=== PATIENT | male | born 2000 | race Caucasian/White ===

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

== ENCOUNTER 2022-08-04 17:18 | Emergency (ER) | payer SELFPAY ==
[~2022-08-04] VITALS: Ht 172 cm; Wt 77.0 kg
[~2022-08-04 17:18] MED LIST changes: -SULF1TAB35 PO; +SULF1TAB38 PO
[2022-08-04] MEDS ORDERED: TETRACAINE 0.5% OPHTH SOLN 4 ML BTL (SINGLE DOSE ONLY) OU ONE (17:30)
[2022-08-04] MEDS ORDERED: POLY/TRIMETH (POLYTRIM) OPHTH 10 ML BTL OU ONE ×2 (17:30)
[2022-08-04] MEDS ORDERED: FLUORESCEIN (FLUOR-I-STRIPS) 1 MG STRP OU ONE (17:30)
[2022-08-04] MEDS ORDERED: RX-POLY/TRIMETH (POLYTRIM) OP 10 ML BTL ONE (17:33)
--- NOTE | 2022-08-04 17:56 | ED EENT ---
History of Present Illness General Chief Complaint: Eye Problems Stated Complaint: FOREIGN BODY IN LEFT EYE Nursing Triage Note: PT AMB TO [facility] PT CO OF POSSIBLE PIECE OF METAL IN L EYE. PT STATES WAS GRINDING YESTERDAY. PT STATES WAS WEARING SAFETY GLASSES. L EYE REDDEND AND IRRITATED Source: patient Exam Limitations: no limitations History of Present Illness Date Seen by Provider: Aug 04, 2022 Time Seen by Provider: 17:26 Initial Comments 20-year-old male with no pertinent past medical history coming in after feeling like he has metal in his left eye. He is a sheetmetal worker, had safety glasses on, and felt to be the metal go into his left eye grinding yesterday. It was red a nd irritated, not having significant pain now, but wanted to get checked out. Tetanus is up-to-date. Allergies and Home Medications Allergies Coded Allergies: No Known Drug Allergies (Unverified , 07/12/09) Patient Home Medication List Home Medication List Reviewed: Yes Hydrocodone/Acetaminophen (Hydrocodone-Acetamin 5-325 mg) 5 Mg-325 Mg Tablet, 1 TAB PO Q6H PRN for PAIN-MODERATE (5-7) Prescribed by: RODRICK SEALS on 08/04/221809 Ibuprofen (Ibuprofen) 600 Mg Tablet, 600 MG PO Q6H PRN for PAIN-MILD Prescribed by: RODRICK SEALS on 08/04/221802 Sulfamethoxazole/Trimethoprim (Bactrim Ds Tablet) 1 Each Tablet, 1 EACH PO BID Prescribed by: JAE KIMBROUGH on 11/07/14 175 Tobramycin/Dexamethasone (Tobradex Eye Drops) 0.3 %-0.1 % Drops.susp, 2 DROPS OP Q4H Prescribed by: RODRICK SEALS on 08/04/221802 Discontinued Medications Tropicamide (Tropicamide) 1 % Drops, 1 DROP OP Q4H Prescribed by: RODRICK SEALS on 08/04/221802 Review of Systems Review of Systems Constitutional: No fever Eyes: See HPI Ears: No Symptoms Reported Nose: no symptoms reported Mouth: no symptoms reported Past Hefpogu-Qwqtii-Knmufm Hx Patient Social History Tobacco Use?: No Substance use?: No Alcohol Use?: No Pt feels they are or have been: No Immunizations Up To Date Tetanus Booster (TDap): Less than 5yrs PED Vaccines UTD: Yes First/Initial COVID19 Vaccinat: YES Second COVID19 Vaccination Layo: YES Family Medical History No Pertinent Family Hx Physical Exam Vital Signs Vital Signs - First Documented 08/04/22 17:25 Temp 36.6 Pulse 110 Resp 16 B/P (MAP) 125/95 (105) Pulse Ox 99 Height, Weight, BMI Height: 5'6.00" Weight: 169lbs. oz. 76.877391ki; 26.00 BMI Method:Stated General Appearance: WD/WN, no apparent distress Eyes: right eye normal inspection; left eye other (Metal flake in the right I along the iris, not in the visual field, normal visual acuity bilaterally, Meli negative, no large corneal abrasion); bilateral eye PERRL, bilateral eye EOMI Progress/Results/Core Measures Results/Orders My Orders Orders - RODRICK SEALS MD Tetracaine 0.5% Ophth Genoveva Sdv (Tetracai (08/04/22 17:30) Fluorescein Strips (Vsqhg-C-Hnxvkg) (08/04/22 17:30) Trimethoprim/Polymyx Ophth Genoveva (Polytrim (08/04/22 17:30) Rx-Poly/Trimeth Ophth (Rx-Polytrim Ophth (08/04/22 17:33) Tropicamide 1% Ophth Soln (Mydriacyl 1% (08/04/22 18:00) Tropicamide 1% Ophth Soln (Mydriacyl 1% (08/04/22 18:05) Medications Given in ED Current Medications Medications Dose Ordered Sig/Juan Carlos Route Start Time Stop Time Status Last Admin Dose Admin Fluorescein Sodium 1 mg ONCE ONCE OU 08/04/22 17:30 08/04/22 17:31 DC 08/04/22 17:33 1 MG Tetracaine HCl 4 ml ONCE ONCE OU 08/04/22 17:30 08/04/22 17:31 DC 08/04/22 17:33 4 ML Tropicamide 15 ml ONCE ONCE OU 08/04/22 18:00 08/04/22 18:01 DC 08/04/22 18:08 15 ML Vital Signs/I&O 08/04/22 17:25 Temp 36.6 Pulse 110 Resp 16 B/P (MAP) 125/95 (105) Pulse Ox 99 Blood Pressure Mean: 105 Progress Progress Note : Progress Note 23-year-old male coming in due to concerns for piece of metal in his eye. ABCs were intact and vitals are stable on presentation. Physical exam with a foreign body in his left eye. Attempted to flush it out, later then attempted to get it out with saline soaked Q-tip which was unsuccessful. Then attempted to use a parallel needle to flex the piece of metal out which was also not successful as it was too deeply embedded. Fluorescein exam done afterwards and Meli test was negative, no large corneal abrasion. He was given antibiotic eyedrops here followed by prescription. I contacted Dr. Tovar who will see him in clinic tomorrow morning. Departure Impression Primary Impression: Foreign body of cornea Qualified Codes: T15.02XA - Foreign body in cornea, left eye, initial encounter Disposition: HOME, SELF-CARE Condition: Stable Departure-Patient Inst. Decision time for Depature: 18:00 Referrals: [facility] (PCP/Family) Primary Care Physician JEWELL ALBRIGHT OD Patient Instructions: Foreign Body in Eye ED Add. Discharge Instructions: Please follow-up with Dr. Albright in his office tomorrow at 9am. His cell phone number is [phone] if you have any issues tonight before that. Take ibuprofen and/or the hydrocodone as needed for pain. You can use the medicine to dilate your eye every 4 hours. Also using antibiotic every 4 hours while awake and wake up at least 1 time in the middle the night to use it. Scripts Hydrocodone/Acetaminophen (Hydrocodone-Acetamin 5-325 mg) 5 Mg-325 Mg Tablet 1 TAB PO Q6H PRN for PAIN-MODERATE (5-7) for 3 Days, #12 TAB Prov: RODRICK SEALS MD 08/04/22 Ibuprofen (Ibuprofen) 600 Mg Tablet 600 MG PO Q6H PRN for PAIN-MILD for 5 Days, #20 TAB Prov: RODRICK SEALS MD 08/04/22 Tobramycin/Dexamethasone (Tobradex Eye Drops) 0.3 %-0.1 % Drops.susp 2 DROPS OP Q4H for 7 Days, #5 ML Prov: RODRICK SEALS MD 08/04/22 Work/School Note: Family Work Note, Patient Received Medical Care In the Emergency Department On: Aug 04, 2022 Patient Will Be Able to Return to Work/School On: Aug 05, 2022 Work Release Form Date Seen in the Emergency Department: Aug 04, 2022 Return to Work: Aug 06, 2022 Restrictions: No Restrictions RODRICK SEALS MD Aug 04, 2022 17:56
[2022-08-04] MEDS ORDERED: TROPICAMIDE 1% OPH SOLN (MYDRIACYL) 15 ML BTL OU ONE (18:00)
[2022-08-04] MEDS ORDERED: ACHD5005 PO ×2 (18:03→18:09)
[2022-08-04] MEDS ORDERED: TOBR5DRO2 OP (18:03)
[2022-08-04] MEDS ORDERED: IBUP-1773 PO (18:03)
[2022-08-04] MEDS ORDERED: [UNRECOGNIZED DRUG - CODE] OP (18:03)
[2022-08-04] MEDS ORDERED: TROPICAMIDE 1% OPH SOLN (MYDRIACYL) 15 ML BTL ONE (18:05)
[2022-08-04] MEDS ORDERED: RX-TOBRAMYCIN (TOBREX) 0.3% OP OINT 3.5 GM TUBE ONE (18:06)
[2022-08-04 18:19] VITALS: BP 134/70
== END 2022-08-04 18:19 | disposition home or self-care (01) ==
LOC: EDUNIT# 17:18 → ER 17:22
DX: T15.02XA Foreign body in cornea, left eye, initial encounter (principal)
CPT/HCPCS: 99281